=== PATIENT | male | born 1995 | race Caucasian/White ===

== ENCOUNTER 2020-02-21 21:12 | Emergency (ER) | payer SELFPAY ==
[~2020-02-21] VITALS: Ht 180.3 cm; Wt 81.8 kg
--- NOTE | 2020-02-21 21:42 | PHYS DOC ---
General Adult EDM: Chief Complaint: OVERDOSE HPI: HPI: 24 yo M unknown pmh comes to the ED brought in by EMS from a orthodox event with concern for this. Patient was found on the ground, unresponsive. Increased alertness with 2 mg of IV Narcan given at 8:15 PM. Pts' girlfriend reported they did cocaine, oxycodone and Xanax. History limited to pts' mental status. Review of Systems: Review of Systems: ROS: Unable to be obtained due to patient's mental status Heart Score: Risk Factors: Risk Factors: DM, Current or recent (<one month) smoker, HTN, HLP, family history of CAD, obesity. Risk Scores: Score 0 - 3: 2.5% MACE over next 6 weeks - Discharge Home Score 4 - 6: 20.3% MACE over next 6 weeks - Admit for Clinical Observation Score 7 - 10: 72.7% MACE over next 6 weeks - Early Invasive Strategies Physical Exam: PE: Constitutional: Minimal speech, moving all 4 extremities, following commands, protecting airway with normal respirations but confused HENT: Normocephalic, atraumatic, bilateral external ears normal, oropharynx moist, no septal hematoma Eyes: [id number] bl, EOMI, conjunctiva normal, no discharge. [] Neck: Normal range of motion, no tenderness, supple, no stridor. [] Cardiovascular:Heart rate regular rhythm, no murmur [] Lungs & Thorax: Bilateral breath sounds clear to auscultation [] Abdomen: Bowel sounds normal, soft, no tenderness, no masses, no pulsatile masses. [] Skin: Warm, dry, no erythema, no rash. [] Back: No tenderness, no CVA tenderness. [] Extremities: No tenderness, no cyanosis, no clubbing, ROM intact, no edema. [] Neurologic: GCS13 ([id number]), normal motor function, normal sensory function, no focal deficits noted. [] EKG: EKG: Sinus at 65 bpm-with sinus arrhythmia/pauses, no axis deviation, normal intervals, T wave inversion lead III, no ST elevations or ST depressions, no prolonged QTC, wide QRS with terminal R in AVR, no delta wave or LVH or dagger Q waves Radiology/Procedures: Radiology/Procedures: [] IMAGING REPORT Signed PATIENT: REMI MARRERO ACCOUNT: [id number] : 1995 LOCATION: ER AGE: 24 SEX: M EXAM STATUS: REG ER ORD. PHYSICIAN: BEAU FERNANDES DO REASON: ams PROCEDURE: PORTABLE CHEST 1V PORTABLE CHEST 1V Clinical Indication: Reason: ams / Spl. Instructions: / History: Comparison: None. Findings: The cardiomediastinal silhouette is normal. Question right infrahilar airspace opacity. Alternatively this may be prominent pulmonary vasculature. Lungs otherwise clear. There is no pneumothorax. No pleural effusion is appreciated. No acute bone abnormality. IMPRESSION: Right infrahilar airspace disease versus prominent pulmonary vasculature. Electronically signed by: Arvind Tomlinson MD (02/21/2020 11:01 PM) [facility] DICTATED and SIGNED BY: ARVIND TOMLINSON MD DATE: 02/21/202300 Course & Med Decision Making: Course & Med Decision Making Pertinent Labs and Imaging studies reviewed. 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 Encouraged urgent outpatient follow-up with PMD. Life-threatening processes were considered but are low suspicion at this time, given history and physical exam. Pt was educated on all prescription medications and adverse effects. All patient's questions were answered and pt was stable at time of discharge. I spoken with the patient and her caregivers. I explained the patient's condition, diagnoses and treatment plan based on the information available to me at this time. I have answered the patient and her caregiver's questions and addressed any concerns. The patient and her caregivers have a good understanding of patient's diagnosis, condition and treatment plan as can be expected at this point. Vital signs have been stable. Patient's condition is stable and appropriate for discharge from the emergency department. Patient will pursue further outpatient evaluation with primary care physician or other designated or consulting physician as outlined in the discharge instructions. The patient and/or caregivers are agreeable to this plan of care and follow-up instructions have been explained in detail. The patient and/or caregivers have received these instructions in written form and have expressed an understanding of the discharge instructions. The patient and/or caregivers are aware that any significant change of condition or worsening of symptoms should prompt immediate return to this or the closest emergency department or call to [facility] Disclaimer: Tony Disclaimer: This electronic medical record was generated, in whole or in part, using a voice recognition dictation system. Departure Departure Impression: Primary Impression: Drug overdose Additional Impression: Polysubstance abuse Disposition: 01 HOME, SELF-CARE Condition: STABLE Patient Instructions: Overdose, Accidental, Polysubstance Abuse Additional Instructions: Dr. Anthony Joseph Psychiatry Specialist [address] [place], [place] [address] EMERGENCY DEPARTMENT GENERAL DISCHARGE INSTRUCTIONS Thank you for coming to [facility] Emergency Department (ED) today and trusting us with you care. We trust that you had a positive experience in our Emergency Department. If you wish to speak to the department management, you may call the Director at [phone]. YOUR FOLLOW UP INSTRUCTIONS ARE FOLLOWS: 1. Do you have a private Doctor? If you do not have a private doctor, please ask for a resource list of physicians or clinics that may be able to assist you with follow up care. 2. The Emergency Physicain has interpreted your x-rays. The X-Ray specialist will also review them. If there is a change in the findings, you will be notified in 48 hours when at all possible. 3. A lab test or culture has been done, your results will be reviewed and you will be notified if you need a change in treatment. ADDITIONAL INSTRUCTIONS AND INFORMATION: 1. Your care today has been supervised by a physician who is specially trained in emergency care. Many problems require more than one evaluation for a complete diagnosis and treatment. We recommend that you schedule your follow up appointment as recommended to ensure complete treatment of you illness or injury. If you are unable to obtain follow up care and continue to have a problem, or if your condition worsens, we recommend that you return to the ED. 2. We are not able to safely determine your condition over the phone nor are we able to give sound medical advice over the phone. For these safety reasons, if you call for medical advice we will ask you to come to the ED for further evaluation. 3. If you have any questions regarding these discharge instructions please call the ED at [phone]. SAFETY INFORMATION: In the interest of safety, wellness, and injury prevention; we encourage you to wear your sealbelt, if you smoke; quite smoking, and we encourage family to use a protective helmet for bicycling and other sporting events that present an increased risk for head injury. IF YOUR SYMPTOMS WORSEN OR NEW SYMPTOMS DEVELOP, OR YOU HAVE CONCERNS ABOUT YOUR CONDITION; OR IF YOUR CONDITION WORSENS WHILE YOU ARE WAITING FOR YOUR FOLLOW UP APPOINTMENT; EITHER CONTACT YOUR PRIMARY CARE DOCTOR, THE PHYSICIAN WHOSE NAME AND NUMBER YOU WERE GIVEN, OR RETURN TO THE ED IMMEDIATELY. Scripts Ondansetron Hcl (ZOFRAN) 4 Mg Tablet 1 TAB PO PRN Q6-8HRS, #15 TAB Prov: BEAU FERNANDES DO 02/22/20 Justicifation of Admission Dx: Justifications for Admission: Justification of Admission Dx: N/A BEAU FERNANDES DO Feb 21, 2020 21:42
[2020-02-21 22:01] LABS: BASO # 0.1 x10^3/uL (0.0-0.2); BASO % 1 % (0-3); EOS # 0.4 x10^3/uL (0.0-0.7); EOS % 4 % (0-3); HEMATOCRIT 44.6 % (39.0-53.0); HEMOGLOBIN 15.4 g/dL (13.0-17.5); LYMPH # 3.4 x10^3/uL (1.0-4.8); LYMPH % 30 % (24-48); MEAN CORPUSCULAR HEMOGLOBIN 31 pg (25-35); MEAN CORPUSCULAR HGB CONC 34 g/dL (31-37); MEAN CORPUSCULAR VOLUME 89 fL (79-100); MONO # 1.2 x10^3/uL (0.0-1.1); MONO % 11 % (0-9); NEUT # 6.2 x10^3/uL (1.8-7.7); NEUT % 55 % (31-73); PLATELET COUNT 305 x10^3/uL (140-400); RED BLOOD COUNT 4.99 x10^6/uL (4.30-5.70); RED CELL DISTRIBUTION WIDTH 13.3 % (11.5-14.5); WHITE BLOOD COUNT 11.3 x10^3/uL (4.0-11.0)
[2020-02-21] MEDS ORDERED: IV NORMAL SALINE 1000ML BAG 1,000 ML IV ONE (22:30)
[2020-02-21 22:37] LABS: BARBITURATES NEG (NEG); BENZODIAZEPINES POS (NEG); CANNABINOIDS POS (NEG); COCAINE POS (NEG); METHADONE NEG (NEG); OPIATES NEG (NEG); PHENCYCLIDINE NEG (NEG)
[2020-02-21 22:38] LABS: CALCIUM 9.9 mg/dL (8.5-10.1); CREATININE 0.9 mg/dL (0.7-1.3); GFR 105.5; POTASSIUM 3.9 mmol/L (3.5-5.1)
[2020-02-21 22:39] LABS: SALIC < 2.8 mg/dL (2.8-20.0)
[2020-02-21 22:40] LABS: AMPHETAMINE/METHAMPHETAMINE POS (NEG)
[2020-02-21 22:40] LABS: ACETAMIN < 2 mcg/ml (10-30); ETHANOL < 10 mg/dL (0-10)
[2020-02-21 22:44] LABS: ALBUMIN 4.4 g/dL (3.4-5.0); ALBUMIN/GLOBULIN RATIO 1.5 (1.0-1.7); TOTAL BILIRUBIN 0.6 mg/dL (0.2-1.0); TOTAL PROTEIN 7.3 g/dL (6.4-8.2)
--- NOTE | 2020-02-21 23:04 | RAD ---
PORTABLE CHEST 1V Clinical Indication: Reason: ams / Spl. Instructions: / History: Comparison: None. Findings: The cardiomediastinal silhouette is normal. Question right infrahilar airspace opacity. Alternatively this may be prominent pulmonary vasculature. Lungs otherwise clear. There is no pneumothorax. No pleural effusion is appreciated. No acute bone abnormality. IMPRESSION: Right infrahilar airspace disease versus prominent pulmonary vasculature. Electronically signed by: Arvind Tomlinson MD (02/21/2020 11:01 PM) [facility]
[2020-02-22 05:30] VITALS: BP 104/59
--- NOTE | 2020-02-22 06:04 | EKG ---
[facility] [address] [place] [address] Test Date: 2020-02-21 Test Time: 21:23:36 Pat Name: REMI MARRERO Department: Room: Gender: M [employer]: : 1995 Requested By: BEAU FERNANDES Order Number: [id number] Reading MD: Measurements Intervals [place] Rate: 65 P: 45 TN: 140 QRS: 35 QRSD: 88 T: 17 QT: 370 QTc: 385 Interpretive Statements SINUS ARRHYTHMIA OTHERWISE NORMAL ECG RI6.02 No previous ECG available for comparison
[2020-02-22] MEDS ORDERED: ONDA4TAB7 PO (06:37)
== END 2020-02-22 06:34 | disposition home or self-care (01) ==
LOC: ER 21:12
DX: T50.7X1A Poisoning by analeptics and opioid receptor antagonists, accidental (unintentional), initial encounter (principal); R41.0 Disorientation, unspecified; F19.10 Other psychoactive substance abuse, uncomplicated; Y92.89 Other specified places as the place of occurrence of the external cause
CPT/HCPCS: 36415; 71045; 80053; 80307; 80329; 82550; 84484; 85025; 93005; 96360; 99285; G0480; J7030